=== PATIENT | female | born 1945 | race Caucasian/White ===

== ENCOUNTER 2016-12-06 12:33 | Inpatient (IN) | payer MEDICARE, OTHER ==
--- NOTE | ~2016-12-06 | HP ---
History And Physical [address] [place]. [address] NAME: SUE ROWE : 47 STATUS : ADM IN PAT#: [id number] AGE: 71 ADM/REG DATE : 12/06/16 MR#: [id number] REPORT SERV DATE: 12/07/16 DICTATED BY: FLORENTIN JACOME DATE: 12/06/16 REPORT STATUS : Draft TRANSCRIBED BY: MODL DATE: 12/06/16 DATE OF ADMISSION: 12/06/2016 CHIEF COMPLAINT: Left knee pain. HISTORY: A 71-year-old female tripped over dog, fell right on her knee about 48 hours ago. Denies pain or injury elsewhere. She has obviously been unable to walk since that time. ALLERGIES: NONE. MEDICATIONS: See chart. PAST MEDICAL HISTORY: Pseudoxanthoma, hypertension, hypercholesterolemia, arthritis, GERD, ulcer, renal calculi, and depression. PAST SURGICAL HISTORY: Tonsillectomy as a child, tubal ligation, laser bilateral eyes, and left eye cataract about five years ago. SOCIAL HISTORY: No cigarettes, alcohol, or illicit drug use. She quit tobacco. Here with her daughter. FAMILY HISTORY: No known anesthetic complications. REVIEW OF SYSTEMS: As above. No recent illnesses. PHYSICAL EXAMINATION: GENERAL: She is alert and oriented x3, in no apparent distress. HEENT: Atraumatic, normocephalic. NECK: Supple. CHEST: Symmetric, nontender. LUNGS: Per AA evaluation. ABDOMEN: Soft. No mass. EXTREMITIES: Both upper extremities and right lower extremity without acute trauma. Left knee obvious anterior swelling, severely tender. She has a very small abrasion on the anterior knee. Compartment supple. 2+ pulses. NEURO: Sensorimotor without deficit. X-RAY: Transverse left patella fracture, displaced, distal comminution. ASSESSMENT: Displaced left patella fracture. PLAN: Left patella ORIF versus partial patellectomy. Risks, benefits, etc., were explained, and patient wishes to proceed. History And Physical [address] [place]. [address] NAME: SUE ROWE : 46 STATUS : ADM IN PAT#: [id number] AGE: 71 ADM/REG DATE : 12/06/16 MR#: [id number] REPORT SERV DATE: 04/29/17 DICTATED BY: FLORENTIN JACOME DATE: 12/06/16 REPORT STATUS : Draft TRANSCRIBED BY: MODL DATE: 12/06/16 WTB/ROSY Whit Jacome M.D. / [id number] CC: Joan Alexis
--- NOTE | ~2016-12-06 | CN ---
Consultation Report [facility] [address] [place]. [address] NAME: SUE ROWE : 47 STATUS : ADM IN [facility]#: [id number] AGE: 71 ADM/REG DATE : 12/06/16 MR#: [id number] REPORT SERV DATE: 12/06/16 DICTATED BY: VERO MARI DATE: 12/06/16 REPORT STATUS : Draft TRANSCRIBED BY: MODL DATE: 12/06/16 CONSULTATION DATE OF CONSULTATION: 12/06/2016 REASON FOR ADMISSION: Patellar fracture. REASON FOR CONSULTATION: Preoperative assessment. HISTORY OF PRESENT ILLNESS: Ms. Rowe is a 71-year-old female history with history of hypertension, peripheral arterial disease who on Friday fell while walking her dog, falling up on her knee upon the pavement with a resulting patellar fracture. She was seen at [facility] and underwent immobilization of the joint, however, following up with Orthopedics today Dr. Alvarado who recommended surgical repair. She was admitted, and we were consulted for preoperative assessment. The patient denies any history of cardiovascular complaints or pulmonary complaints. She does, however, have claudication which limits her ability to walk but she is able to walk satisfactorily and in fact has had a negative stress test recently. The patient denies any gastrointestinal complaints. No genitourinary complaints. No history of bleeding or history of anesthetic reaction. REVIEW OF SYSTEMS: Remainder of review of systems are negative. PAST MEDICAL HISTORY: As mentioned above. History of stroke in 2003 without sequelae. MEDICATIONS: Include Xanax, aspirin, Pletal, diltiazem, Zestril, Prilosec, Zocor, Effexor, vitamin D, vitamin E. ALLERGIES: NO ALLERGIES. FAMILY HISTORY: Negative for anesthetic reactions. SOCIAL HISTORY: The patient is a remote smoker. PHYSICAL EXAMINATION: VITAL SIGNS: Actually not been yet assessed. GENERAL: On exam, comfortable white female, oriented x3, in no apparent distress. HEENT: Pupils are equal, round, and reactive to light. Extraocular movements are intact. No cranial nerve deficits. Moist mucous membranes. Normal oropharynx. NECK: Revealed no jugular venous distention, carotid bruits, lymphadenopathy or goiter. CARDIAC EXAM: Regular rate and rhythm. No murmurs, gallops, or rubs. LUNGS: Clear to auscultation bilaterally. Good excursion. ABDOMEN: Soft and nontender. Bowel sounds normoactive. EXTREMITIES: Left leg in immobilizer. She has swollen patella. She had 1+ pulses distally Consultation Report [address] [place]. [address] NAME: SUE ROWE : 46 STATUS : ADM IN PAT#: [id number] AGE: 71 ADM/REG DATE : 12/06/16 MR#: [id number] REPORT SERV DATE: 12/06/16 DICTATED BY: VERO MARI DATE: 12/06/16 REPORT STATUS : Draft TRANSCRIBED BY: MODL DATE: 12/06/16 with diminished capillary refill. NEUROLOGIC: She had normal sensory motor function in the bilateral lower extremities. SKIN: Warm and dry. PSYCHIATRIC: She is appropriate. LABORATORY EVALUATION: Pending at this time. ASSESSMENT AND PLAN: Patellar fracture. The patient's only risk factor for preoperative assessment is age. EKG, however, is pending. Excellent exertional capacity and even an elective surgery with a recent negative stress test. She is clear from a cardiac standpoint to undergo an operation. Blood pressures currently appears to be stable on current medications. We will assess with nursing, do await labs prior to anesthesia, and we will check a 12-lead EKG. As for peripheral arterial disease, Pletal will be held in the perioperative period and aspirin may be continued. She will be on DVT prophylaxis. We also anticipate the possibility of rehabilitation following her operation. We appreciate the opportunity to assist in care of this patient. I will follow along with you. MARY/ROSY Vero Mari M.D. / [id number] CC: Joan Alexis M.D.
--- NOTE | ~2016-12-06 | DS ---
Discharge Summary [facility] [address] [place]. [address] NAME: SUE ROWE : 47 STATUS : DIS IN PAT#: [id number] AGE: 71 ADM/REG DATE : 12/06/16 MR#: [id number] REPORT SERV DATE: 12/20/16 DICTATED BY: FLORENTIN JACOME DATE: 12/19/16 REPORT STATUS : Draft TRANSCRIBED BY: ROSY DATE: 12/19/16 Data Collection from hospitalization DISCHARGE DIAGNOSIS(ES): 1. Left comminuted patella fracture. 2. Hypertension. 3. Pseudoxanthoma. 4. Hypercholesterolemia. 5. Arthritis. 6. Gastroesophageal reflux disease. 7. Ulcer. 8. Renal calculi. 9. Depression. 10.Former tobacco use. CONSULTATIONS: Jesus Cheung M.D. PROCEDURES PERFORMED: Left knee partial patellectomy/open reduction and internal fixation, 12/06/2016. DISCHARGE MEDICATIONS: Xanax 0.5 mg at bedtime and 0.5 mg daily as needed, aspirin 81 mg at bedtime, vitamin D 5000 units daily, Pletal 100 mg twice a day, Cardizem LA 360 mg daily, Prinivil 40 mg at bedtime, Prilosec 40 mg before breakfast, Zofran 4 mg every four hours as needed, Roxicodone 5 to 10 mg every four hours as needed, Zocor 40 mg at bedtime, vitamin E 400 units daily, eye injection one dose every 30 days as instructed, Effexor 75 mg twice a day, and Coumadin 2 mg daily. CONDITION AT DISCHARGE: Stable. DISPOSITION: The patient was discharged home on a regular diet with activities as instructed. She would follow up with me two weeks following discharge. She would follow up with Dr. Oneill for labs every Friday or Friday while on Coumadin. HOSPITAL COURSE: This is a 71-year-old female who tripped over a dog and fell on her knee about 48 hours prior to admission. She denied any pain or injury elsewhere. She had been unable to walk since that time. X-rays revealed a transverse left patella fracture, displaced, distal comminution. Treatment options were discussed, and it was elected to proceed with surgical intervention. She was admitted to the hospital for further evaluation and treatment. Upon admission, she was seen by Dr. Jesus Cheung for preoperative assessment. The patient denies any history of cardiovascular or pulmonary complaints. She does have claudication which limits her ability to walk, but she is able to walk satisfactorily, and in fact had had a negative stress test recently. She denied any gastrointestinal complaints and had no genitourinary complaints. She has no history of bleeding or history of anesthetic reactions. It was felt that she would be cleared from a cardiac standpoint to undergo an operation. Blood pressure currently appeared to be stable on her current medications. She was taken to the operating room where she underwent the above-mentioned Discharge Summary [address] [address] NAME: SUE ROWE : 47 STATUS : DIS IN PAT#: [id number] AGE: 71 ADM/REG DATE : 12/06/16 MR#: [id number] REPORT SERV DATE: 12/20/16 DICTATED BY: FLORENTIN JACOME DATE: 12/19/16 REPORT STATUS : Draft TRANSCRIBED BY: ROSY DATE: 12/19/16 procedure, she tolerated this well, and there were no complications. On postop day #1, she was evaluated by Occupational and Physical Therapy. SERGEI hose were in place. Pletal was placed on hold. Protonix and simvastatin were continued. Effexor was being given for her depression. She did complain of some photosensitivity and nausea. INR level was 1.0. Zofran was given. On 12/08/2016, her nausea had improved. She was requesting rehabilitation. Cardizem was increased. Her blood pressure had increased. Her left leg brace was adjusted. We encouraged her to mobilize with physical therapy. The next day, she continued to do well. 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 SERGEI hose and knee mobilizers were in place. Pletal remained on hold. Discharge planning was performed. On 12/10/2016, she continued to do well. She was out sitting in a bedside chair. Discharge instructions were given. Due to her improved and stable condition, she was discharged home with the above-stated instructions. Information collected by: Sarah López I submit the above information as my discharge summary. DESHAUN/ROSY Whit Jacome M.D. / [id number] CC: Joan Alexis
--- NOTE | ~2016-12-06 | OP ---
Record Of Operation [facility] [address] [place]. [address] NAME: SUE ROWE : 47 STATUS : ADM IN PAT#: [id number] AGE: 71 ADM/REG DATE : 12/06/16 MR#: [id number] REPORT SERV DATE: 12/07/16 DICTATED BY: FLORENTIN JACOME DATE: 12/06/16 REPORT STATUS : Draft TRANSCRIBED BY: MODL DATE: 12/06/16 DATE OF PROCEDURE: 12/06/2016 PREOPERATIVE DIAGNOSIS: Left comminuted patella fracture. POSTOPERATIVE DIAGNOSIS: Left comminuted patella fracture. OPERATION: Left knee partial patellectomy/open reduction and internal fixation. SURGEON: Whit Jacome M.D. HAND FABRIC CUTTER: See chart. DESCRIPTION OF PROCEDURE: The patient was taken to the operating room and placed supine on the table in normal fashion without incident. General anesthetic was induced per the anesthesiologist. The patient was carefully positioned, padded, prepped, and draped in normal sterile fashion. Left lower extremity was exsanguinated. Tourniquet inflated to 350. Sharp dissection was made through a midline longitudinal incision and electrocautery through the fat. A large hematoma was decompressed. The fracture was open and identified and the distal pole was severely comminuted to the point that it was not reconstructible. 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 The proximal two-thirds of patella, however, was a large solid fragment. For this reason, I excised the midportion comminuted part of the distal pole leaving the very most distal aspect of the bone intact. Through this, I passed two #5 FiberWire in a woven fashion, allowed the four legs of these two sutures to remain out through the proximal aspect of that distal pole. Wire was then passed longitudinally through the remaining proximal pole three times to pass these four suture legs. These were then sewn over each other and approximating the distal pole fracture fragments to the remaining proximal pole. The remaining medial and lateral retinaculum were over sown twice to further reinforce the repair. This was after copious irrigation with pulsatile lavage. The skin was then closed in a layered fashion. The wound was dressed sterilely. The patient placed in a hinged knee brace locked in extension. Awakened and discharged to postanesthesia care unit without incident. Discussed this with the family. COMPLICATIONS: None. SPECIMENS: None. ESTIMATED BLOOD LOSS: Acute blood was trace. WTB/MODL Whit Jacome M.D. Record Of [address] [address] NAME: SUE ROWE : 46 STATUS : ADM IN PAT#: [id number] AGE: 71 ADM/REG DATE : 12/06/16 MR#: [id number] REPORT SERV DATE: 12/07/16 DICTATED BY: FLORENTIN JACOME DATE: 12/06/16 REPORT STATUS : Draft TRANSCRIBED BY: MODL DATE: 12/06/16 / [id number] CC: Joan Alexis
[~2016-12-06 12:33] MED LIST: ASAB PO; CILOSTAZOL100 MG PO; DILT-XR240 MG PO; EFFEX75 PO; PRILOSEC40 MG PO; X5 PO; ZESTRIL20 MG PO; ZOCOR40 PO
[2016-12-06 16:33] LABS: BASOPHILS 0.2 %; BASOPHILS ABSOLUTE 0.02 10/3/uL (0.0-0.16); EOSINOPHILS 0.6 %; EOSINOPHILS ABSOLUTE 0.05 10/3/uL (0.0-0.53); HEMATOCRIT 37.7 % (36.0-48.0); HEMOGLOBIN 12.8 g/dL (12.0-16.0); IMMATURE GRANULOCYTES 0.2 %; IMMATURE GRANULOCYTES ABSOLUTE 0.02 10/3/uL (0.0-0.11); LYMPHOCYTES 22.2 %; LYMPHOCYTES ABSOLUTE 1.78 10/3/uL (0.67-4.30); MEAN CORPUSCULAR HEMOGLOB 30.1 pg (26.0-34.0); MEAN CORPUSCULAR VOLUME 88.7 fL (80-100); MEAN PLATELET VOLUME 10.5 fL (9.2-13.0); MONOCYTES 8.6 %; MONOCYTES ABSOLUTE 0.69 10/3/uL (0.21-1.20); NEUTROPHILS 68.2 %; NEUTROPHILS ABSOLUTE 5.47 10/3/uL (2.02-8.40); PLATELET COUNT 221 10/3/uL (150-400); RBC DISTRIBUTION WIDTH 13.5 % (12.0-16.0); RED CELL COUNT 4.25 10/6/uL (4.0-5.6)
[2016-12-06 16:36] LABS: MANUAL DIFF NO %
[2016-12-06 17:58] LABS: BUN (BLOOD UREA NITROGEN) 15 MG/DL (6-23); CALCIUM, SERUM 9.5 MG/DL (8.5-10.4); CHLORIDE, SERUM 105 MMOL/L (96-112); CO2 (CARBON DIOXIDE) 28 MMOL/L (24-34); CREATININE 0.97 MG/DL (0.55-1.02); GFR AFRICAN AMERICAN 69 ML/MIN (>=60); GFR NON AFRICAN AMERICAN 59 ML/MIN (>=60); GLUCOSE, SERUM 83 MG/DL (60-99); POTASSIUM, SERUM 3.6 MMOL/L (3.5-5.3); SODIUM, SERUM 141 MMOL/L (135-148)
[2016-12-07 05:44] LABS: HEMATOCRIT 35.5 % (36.0-48.0); HEMOGLOBIN 11.8 g/dL (12.0-16.0)
[2016-12-07 05:49] LABS: PROTIME (NOT ORD) 13.5 SEC (12.0-14.5)
[2016-12-07 05:56] LABS: BUN (BLOOD UREA NITROGEN) 18 MG/DL (6-23); CALCIUM, SERUM 8.9 MG/DL (8.5-10.4); CHLORIDE, SERUM 106 MMOL/L (96-112); CO2 (CARBON DIOXIDE) 26 MMOL/L (24-34); CREATININE 1.06 MG/DL (0.55-1.02); GFR AFRICAN AMERICAN 62 ML/MIN (>=60); GFR NON AFRICAN AMERICAN 53 ML/MIN (>=60); SODIUM, SERUM 139 MMOL/L (135-148)
[2016-12-07 05:57] LABS: GLUCOSE, SERUM 140 MG/DL (60-99); POTASSIUM, SERUM 4.5 MMOL/L (3.5-5.3)
[2016-12-07] MEDS ORDERED: X5 PO ×2 (18:52→18:53)
[2016-12-07] MEDS ORDERED: CILOSTAZOL100 MG PO (18:53)
[2016-12-07] MEDS ORDERED: CARTIA XT240 MG/24 PO (18:53)
[2016-12-07] MEDS ORDERED: ZOCOR40 PO (18:53)
[2016-12-07] MEDS ORDERED: EFFEXXR75 PO (18:54)
[2016-12-07] MEDS ORDERED: PRILOSEC40 MG PO (18:54)
[2016-12-07] MEDS ORDERED: LISINOPRIL40 MG PO (18:54)
[2016-12-07] MEDS ORDERED: ASAB PO (18:57)
[2016-12-07] MEDS ORDERED: EYE INJECTION IO (18:58)
[2016-12-07] MEDS ORDERED: D 5000 PO (18:58)
[2016-12-07] MEDS ORDERED: VITE PO (18:58)
[2016-12-08 06:01] LABS: HEMATOCRIT 33.1 % (36.0-48.0); HEMOGLOBIN 11.1 g/dL (12.0-16.0)
[2016-12-08 06:06] LABS: INTERNATIONAL NORMAL RATI 1.1 UNITS (-)
[2016-12-08 06:12] LABS: BUN (BLOOD UREA NITROGEN) 26 MG/DL (6-23); CALCIUM, SERUM 8.8 MG/DL (8.5-10.4); CHLORIDE, SERUM 109 MMOL/L (96-112); CO2 (CARBON DIOXIDE) 28 MMOL/L (24-34); GFR AFRICAN AMERICAN 59 ML/MIN (>=60); GFR NON AFRICAN AMERICAN 51 ML/MIN (>=60); GLUCOSE, SERUM 104 MG/DL (60-99); POTASSIUM, SERUM 4.3 MMOL/L (3.5-5.3); SODIUM, SERUM 142 MMOL/L (135-148)
[2016-12-09 04:10] LABS: HEMATOCRIT 34.1 % (36.0-48.0); HEMOGLOBIN 11.4 g/dL (12.0-16.0)
[2016-12-09 05:09] LABS: INTERNATIONAL NORMAL RATI 2.1 UNITS (-)
[2016-12-09 05:10] LABS: PROTIME (NOT ORD) 23.6 SEC (12.0-14.5)
[2016-12-10 04:37] LABS: INTERNATIONAL NORMAL RATI 1.9 UNITS (-); PROTIME (NOT ORD) 21.3 SEC (12.0-14.5)
[2016-12-10] MEDS ORDERED: ZOFRAN4 PO (12:26)
[2016-12-10] MEDS ORDERED: OXYCOD PO (12:26)
[2016-12-10] MEDS ORDERED: CARDIZEM LA360 MG PO (12:26)
[2016-12-10] MEDS ORDERED: C2 PO (12:26)
== END 2016-12-10 17:19 | disposition home or self-care (01) | DRG 489 ==
LOC: 3SO 12:33
PROVIDERS: Nurse Practitioner Acute Care; Specialist
PROC: 0QSF04Z Reposition Left Patella with Internal Fixation Device, Open Approach (ICD-10-PCS; 2016-12-06)
PROC: 0QBF0ZZ Excision of Left Patella, Open Approach (ICD-10-PCS; principal; 2016-12-06 17:45)
DX: S82.042A Displaced comminuted fracture of left patella, initial encounter for closed fracture (principal); I10 Essential (primary) hypertension; K21.9 Gastro-esophageal reflux disease without esophagitis; I73.9 Peripheral vascular disease, unspecified; E78.5 Hyperlipidemia, unspecified; F32.9 Major depressive disorder, single episode, unspecified; Q82.8 Other specified congenital malformations of skin
CPT/HCPCS: 71010; 76000; 80048; 85014; 85018; 85025; 85610; 93005; 97110-GP; 97116-GP; 97162-GP; 97166-GO; 97535-GO; A9270-GY; G8978-CL-GP; G8979-CK-GP; G8987-CK-GO; G8988-CK-GO; G8989-CK-GO; J0690; J1170; J1885; J2250; J2274; J2370; J2405; J2795; J3010